=== PATIENT | female | born 1955 | race Caucasian/White ===

== ENCOUNTER 2017-02-19 09:48 | Emergency (ER) | payer MEDICARE ==
[~2017-02-19] VITALS: Ht 170.2 cm; Wt 72.6 kg
[2017-02-19 09:52] VITALS: BP 154/90; PULSE 74; RESP 20; TEMP 98.1; O2SAT 97
[2017-02-19] MEDS ORDERED: OMEP40CA2 PO (10:08)
[2017-02-19] MEDS ORDERED: NAPR500T PO (10:08)
[2017-02-19] MEDS ORDERED: FEXO15TA PO (10:08)
[2017-02-19] MEDS ORDERED: MULTCAP PO (10:08)
[2017-02-19] MEDS ORDERED: CALTTAB PO (10:08)
[2017-02-19] MEDS ORDERED: ESCI20TA PO (10:08)
[2017-02-19] MEDS ORDERED: ALPR0.5T3 PO (10:08)
[2017-02-19] MEDS ORDERED: MIRA3350 (10:08)
--- NOTE | 2017-02-19 10:19 | PD ---
HPI Chief Complaint: Musculoskeletal Complaint Time Seen by Provider: 10:11 Travel History International Travel<30 days: No Contact w/Intl Traveler<30days: No Traveled to known affect area: No History of Present Illness HPI This 61-year-old female says that 2 days ago she fell and injured her left knee and her left wrist. She did not hit her head or anything else. Since the injury she's been having pain in the left wrist. She has a history of quite severe osteoarthritis. She has had surgeries on her hands including knuckle replacement. She's been applying ice to the wrist but continues to have pain and is really not able to use the left hand much. She has noted some pain in the left knee. She gets a shooting pain when she touches the lateral aspect of the left knee. She is able to bear weight. PFSH Past Medical History Arthritis: Yes Depression: Yes Diminished Hearing: No GERD: Yes Influenza Vaccination: Yes ?: Not Past Surgical History Appendectomy: Yes Hysterectomy: Yes Tonsillectomy: Yes Social History Alcohol Use: No Tobacco Use: No Allergies-Medications (Allergen,Severity, Reaction): Coded Allergies: Oxycodone (Verified Allergy, Intermediate, SEVERE HEADACHE, 02/19/17) Penicillin (Verified Allergy, Intermediate, HIVES, 02/19/17) Uncoded Allergies: COBAN DRESSING (Allergy, Intermediate, SKIN BLISTERS, 02/19/17) Reported Meds & Prescriptions Reported Meds & Active Scripts Active Reported Miralax (Polyethylene Glycol 3350) 1 Pow Pow 0 Rachel Allergy (Fexofenadine HCl) 180 Mg Tab 180 Mg PO DAILY Alprazolam 0.5 Mg Tab 0.5 Mg PO HS PRN Multi For Her (Multiple Vitamins W/ Minerals) 1 Cap Cap 1 Tab PO DAILY Escitalopram (Escitalopram Oxalate) 20 Mg Tab 20 Mg PO DAILY Naproxen 500 Mg Tab 500 Mg PO DAILY Omeprazole 40 Mg Cap 40 Mg PO DAILY Caltrate 600+D (Calcium Carbonate-Cholecalciferol) 600-800 Mg-Unit Tab 1 Tab PO DAILY Review of Systems General / Constitutional: No: Fever, Chills Eyes: No: Diploplia HENT: No: Headaches Cardiovascular: No: Chest Pain or Discomfort, Palpitations Respiratory: No: Cough, Shortness of Breath Gastrointestinal: No: Vomiting, Diarrhea Musculoskeletal: Positive: Myalgias, Arthralgias, Pain Skin: No Rash, No Itching Physical Exam Narrative GENERAL: Well-developed female SKIN: Focused skin assessment warm/dry. HEAD: Atraumatic. Normocephalic. EYES: Pupils equal and round. No scleral icterus. No injection or drainage. ENT: No nasal bleeding or discharge. Mucous membranes pink and moist. NECK: Trachea midline. No JVD. CARDIOVASCULAR: Regular rate and rhythm. No murmur appreciated. RESPIRATORY: No accessory muscle use. Clear to auscultation. Breath sounds equal bilaterally. GASTROINTESTINAL: Abdomen soft, non-tender, nondistended. Hepatic and splenic margins not palpable. MUSCULOSKELETAL: No obvious deformities. No clubbing. No cyanosis. No edema. Examining the left wrist there is quite a bit of tenderness in the area of the navicular. She does have pain with movement of the wrist. Skin is intact. There is tenderness over the lateral aspect of the left knee and palpation of this area gives an electric shock going down the left leg. There is good strength in plantar and dorsiflexion NEUROLOGICAL: Awake and alert. No obvious cranial nerve deficits. Motor grossly within normal limits. Normal speech. PSYCHIATRIC: Appropriate mood and affect; insight and judgment normal. Data Data Last Documented VS Vital Signs Date Time Temp Pulse Resp B/P Pulse Ox O2 Delivery O2 Flow Rate FiO2 02/19/17 09:52 98.1 74 20 154/90 97 Orders Knee, Complete (4vws) (02/19/17 10:15) Wrist, Complete ([id number]) (02/19/17 10:15) Splint Or Brace Apply/Monitor (02/19/17 11:17) Acetamin-Hydrocod 325-5 Mg (Cheney 5-325 (02/19/17 11:30) MDM Medical Decision Making Medical Screen Exam Complete: Yes Emergency Medical Condition: Yes Medical Record Reviewed: Yes Differential Diagnosis Differential includes fractured wrist, contusion, fractured navicular, fracture proximal fibula, contusion Narrative Course X-ray of the left wrist shows the trapezium to be absent. No acute fracture is seen. Patient is quite uncomfortable with pain and will be put in a splint for comfort and also in the event this represents a fractured navicular. I will recommend that she follow up with hand surgery. X-ray of the knee is negative. Patient is quite tender in the area of the navicular and does have swelling at this site. She will be splinted with recommendations to follow-up with hand surgery. Diagnosis Primary Impression: Contusion of wrist, left Additional Impression: Contusion of knee Qualified Code: S80.02XA - Contusion of left knee, initial encounter Referrals: Anabela West MD Additional Instructions: Follow-up with hand surgeon Scripts Hydrocodone-Acetaminophen (Lortab)7.5-325 Mg Tab1 Tab PO Q4H PRN (PAIN) #30 TAB Ref 0 Prov:Escobar Sandoval MD 02/19/17 Disposition: 01 DISCHARGE HOME Condition: Stable Escobar Sandoval MD Feb 19, 2017 10:19
--- NOTE | 2017-02-19 10:46 | RADHPO ---
EXAM DATE/TIME: 02/19/2017 10:30 [facility] COMPARISON: No previous studies available for comparison. INDICATIONS : Left lateral knee pain post fall. MEDICAL HISTORY : Gastroesophageal reflux disease. Osteoarthritis. SURGICAL HISTORY : Tonsillectomy. Appendectomy. Hysterectomy. Bialteral hands & feet due to osteoarthritis. ENCOUNTER: Initial ACUITY: 2 days PAIN SCORE: 5/10 LOCATION: Left lateral knee FINDINGS: Four views of the left knee demonstrate no fracture or dislocation. No joint effusion is present. The re is no significant arthropathy and mineralization is within normal limits. There is a subtle subcho ndral area of sclerosis along the posterior medial femoral condyle. No soft tissue abnormality or rad iopaque foreign body is identified. CONCLUSION: No acute left knee abnormality is identified. Nabeel Morfin MD on February 19, 2017 at 10:43 Board Certified Radiologist. This report was verified electronically.
--- NOTE | 2017-02-19 10:49 | RADHPO ---
EXAM DATE/TIME: 02/19/2017 10:35 [facility] COMPARISON: No previous studies available for comparison. INDICATIONS : Left wrist pain post fall. MEDICAL HISTORY : Gastroesophageal reflux disease. Osteoarthritis. SURGICAL HISTORY : Tonsillectomy. Appendectomy. Hysterectomy. Bilateral hands & feet due to osteoarthritis. ENCOUNTER: Initial ACUITY: 2 days PAIN SCORE: 8/10 LOCATION: Left wrist FINDINGS: AP, lateral and oblique views of the left wrist were obtained and demonstrate absence of the trapeziu m. There are degenerative changes in the trapezium scaphoid joint, metacarpal carpal joints and inter carpal joints with sclerosis and mild joint space loss. There is mild osteopenia. There is no acute f racture or malalignment. There is mild soft tissue prominence. There are mild degenerative changes in volving the proximal first metacarpal. CONCLUSION: 1. Apparent surgical absence of the trapezium. 2. No acute fracture or malalignment. 3. Mild osteoarthritic change and osteopenia. Ortiz Alcazar MD on February 19, 2017 at 10:45 Board Certified Radiologist. This report was verified electronically.
[2017-02-19] MEDS ORDERED: HYDR-3534 PO (11:23)
[2017-02-19] MEDS ORDERED: ACETAMINOPHEN/HYDROcodone 325 MG/5 MG TAB PO ONE (11:30)
== END 2017-02-19 12:00 | disposition home or self-care (01) ==
LOC: PHED 09:48
DX: S60.212A Contusion of left wrist, initial encounter (principal); M19.90 Unspecified osteoarthritis, unspecified site; Z96.692 Finger-joint replacement of left hand; W19.XXXA Unspecified fall, initial encounter
CPT/HCPCS: 73110; 73564; 99283; L3808